=== PATIENT | female | born 1995 | race African-American/Black ===

== ENCOUNTER 2016-09-28 16:25 | Emergency (ER) | payer OTHER, MEDICAID ==
[2016-09-28] MEDS ORDERED: LIDOCAINE 5% (700 MG) TRANSDERMAL ADH..PATCH TP ONE (16:55)
[2016-09-28] MEDS ORDERED: IBUPROFEN 600 MG TABLET PO ONE (16:55)
--- NOTE | 2016-09-28 17:02 | ER Document Report ---
ED Fall - General Chief Complaint: Fall Injury Stated Complaint: FALL AT WORK/BACK PAIN Time Seen by Provider: 09/28/16 16:47 Mode of Arrival: Ambulatory Information source: Patient Notes: 21-year-old female presents to ED for pain to her upper and lower back after she fell today at work at [employer]. She states she has pain in her thoracic area and lower back as well as numbness and tingling in her lower back. She denies head or neck injury or any loss of consciousness. She states she has hurt her back in the past. She states she also had back pain after an epidural. TRAVEL OUTSIDE OF THE [place] IN LAST 30 DAYS: No - HPI Occurred: This afternoon Where: Work Context: Slipped, Fell from standing Associated symptoms: None Location of injury/pain: Back Quality of pain: Sharp, Other - Numbness and tingling to the lower back Severity: Moderate Pain Level: 4 Past Medical History - General Information source: Patient - Social History Smoking Status: Current Every Day Smoker Cigarette use (# per day): Yes - 2 Cigarettes a day Chew tobacco use (# tins/day): No Smoking Education Provided: Yes - Less than 2 minutes Frequency of alcohol use: Social Drug Abuse: None Occupation: [employer] Lives with: Grandparent(s) Family History: Thyroid Disfunction Patient has suicidal ideation: No Patient has homicidal ideation: No - Past Medical History Cardiac Medical History: Reports: None Pulmonary Medical History: Reports: None EENT Medical History: Reports: None Neurological Medical History: Reports: None Endocrine Medical History: Reports: None Renal/ Medical History: Reports: None Malignancy Medical History: Reports: None GI Medical History: Reports: None Musculoskeltal Medical History: Reports Hx Musculoskeletal Trauma Skin Medical History: Reports None Psychiatric Medical History: Reports: None Traumatic Medical History: Reports: None Infectious Medical History: Reports: None Surgical Hx: Negative Past Surgical History: Reports: None - Immunizations Immunizations up to date: Yes Hx Diphtheria, Pertussis, Tetanus Vaccination: Yes Review of Systems - Review of Systems Constitutional: No symptoms reported EENT: No symptoms reported Cardiovascular: No symptoms reported Respiratory: No symptoms reported Gastrointestinal: No symptoms reported Genitourinary: No symptoms reported Female Genitourinary: No symptoms reported Musculoskeletal: Back pain - mid back and low back. denies: Neck pain Skin: No symptoms reported Hematologic/Lymphatic: No symptoms reported Neurological/Psychological: No symptoms reported -: Yes All other systems reviewed and negative Physical Exam - Vital signs Vitals: Temp Pulse Resp BP Pulse Ox 98.4 F 83 16 117/70 100 09/28/16 16:29 09/28/16 16:29 09/28/16 16:29 09/28/16 16:29 09/28/16 16:29 Interpretation: Normal - General General appearance: Appears well, Alert - HEENT Head: Normocephalic, Atraumatic Eyes: Normal Pupils: PERRL - Respiratory Respiratory status: No respiratory distress Chest status: Nontender Breath sounds: Normal Chest palpation: Normal - Cardiovascular Rhythm: Regular Heart sounds: Normal auscultation Murmur: No - Abdominal Inspection: Normal Distension: No distension Bowel sounds: Normal Tenderness: Nontender Organomegaly: No organomegaly - Back Back: Normal, Tender. No: Deformity/step-off Notes: Denies loss of bowel or bladder control, denies loss of muscle control or sensation. No signs of cauda equina. No saddle anesthesia. - Extremities General upper extremity: Normal inspection, Nontender, Normal color, Normal ROM , Normal temperature General lower extremity: Normal inspection, Nontender, Normal color, Normal ROM , Normal temperature, Normal weight bearing. No: Morris's sign - Neurological Neuro grossly intact: Yes Cognition: Normal Orientation: AAOx4 [place] Coma Scale Eye Opening: Spontaneous Sruthi Coma Scale Verbal: Oriented Sruthi Coma Scale Motor: Obeys Commands Sruthi Coma Scale Total: 15 Speech: Normal Cranial nerves: Normal Cerebellar coordination: Normal Motor strength normal: LUE, RUE, LLE, RLE Additional motor exam normals: Equal academic services coordinator Sensory: Normal - Psychological Associated symptoms: Normal affect, Normal mood - Skin Skin Temperature: Warm Skin Moisture: Dry Skin Color: Normal Course - Re-evaluation Re-evalutation: 09/28/16 18:48 Patient was treated with ibuprofen and Lidoderm for her back pain and Macrobid for her UTI. Just as I was typing up her discharge papers she requested to be checked for STDs. GC and Chlamydia and wet mount sample sent to the lab. Patient refused treatment while she is in the emergency room for STDs. She was informed if they come back positive she will need to return to the emergency room for treatment. Patient refused shot of Rocephin and azithromycin while in the emergency room. - Vital Signs Vital signs: Temp Pulse Resp BP Pulse Ox 98.4 F 83 16 117/70 100 09/28/16 16:29 09/28/16 16:29 09/28/16 16:29 09/28/16 16:29 09/28/16 16:29 - Laboratory Laboratory results interpreted by me: 09/28/16 17:00 Urine Protein 30 H Urine Ketones TRACE H Ur Leukocyte Esterase LARGE H Urine Ascorbic Acid 40 H Discharge - Discharge Clinical Impression: Low back pain Qualifiers: Chronicity: acute Back pain laterality: unspecified Sciatica presence: with sciatica Sciatica laterality: sciatica of left side Qualified Code(s): M54.42 - Lumbago with sciatica, left side UTI (urinary tract infection) Qualifiers: Urinary tract infection type: site unspecified Hematuria presence: without hematuria Qualified Code(s): N39.0 - Urinary tract infection, site not specified Condition: Stable Disposition: HOME, SELF-CARE Instructions: Stretching Exercises for the Back ([facility]) Additional Instructions: LOW BACK PAIN: Three out of every four people will have an episode of disabling back pain during their lifetime. Most commonly the pain is due to straining of the muscles and ligaments in the low back. Usual treatment includes: (1) Rest on a firm surface. Avoid lying on your stomach. (2) Ice pack the painful area. After a few days, gentle heat may be used intermittently to relax the area, or ice packs can be continued. (3) Medication may be needed -- muscle relaxers and antiinflammatory medicines are commonly used. (4) As the back improves, exercises are prescribed to strengthen the back and abdominal muscles. Your doctor will advise you on the proper care for your back at each stage in your recovery. You may be better in a few days -- or healing may take several weeks. If new symptoms of a "herniated disc" (radiation of pain, numbness, or tingling down the back of the leg or weakness in the leg) occur, you should be re-examined. Further testing may be necessary. URINARY TRACT INFECTION: Your evaluation indicates that you have a urinary tract infection. This is due to germs growing in the bladder. This is a common problem. This infection usually responds quickly to antibiotics. Your antibiotic should be taken exactly as prescribed. Drink plenty of fluids -- three to four quarts a day. Occasionally, a bladder anesthetic will be prescribed to help stop the feeling of urgency until the antibiotic has a chance to clear the infection. This may cause your urine to be dark orange. Certain urine infections require a culture. If the doctor obtained a culture, the results will be back in two days. You should call to see if a change in treatment is needed. A repeat urinalysis after you finish treatment is often recommended. The physician will let you know if further testing is required. Call the doctor if you develop fever, chills, flank pain, inability to urinate, or blood in the urine. NITROFURANTOIN (MACRODANTIN, MACROBID): You have received a prescription for nitrofurantoin (Macrodantin). This antibiotic is used for urinary tract infections. Women who are or nursing should notify the physician before taking this medicine. If you have ever had a problem caused by this medication in the past, be sure the physician is aware of it. Common side effects of this medicine include nausea, vomiting, or decreased appetite. Notify your physician if these side effects become severe. Immediately stop this medicine and call the physician if you develop cough , shortness of breath, chest pain, weakness, jaundice (yellow color of the skin and whites of the eyes), or a skin rash. Anti-Inflammatory Medication You have received a prescription for an antiinflammatory agent. This is an excellent, safe drug for pain control. In addition, it has potent antiinflammatory effects which are beneficial, especially in the treatment of injuries, arthritis, or tendonitis. It's best to take this medicine with food. Persons with ulcer disease or allergy to aspirin should notify their physician of this before taking this drug. Take the medication exactly as prescribed. Don't take additional doses unless instructed to do so by your doctor. If you develop wheezing, shortness of breath, hives, faintness, stomach pain, vomiting, or dark black stools, return for re-evaluation at once. MUSCLE RELAXERS: Muscle relaxing medications are usually prescribed for acute muscle spasm or injury to the neck and back. They are often combined with antiinflammatory pain medication for increased relief. You may stop the muscle relaxer when the pain and stiffness have improved. Start the medication again if spasms recur. Muscle relaxers may cause drowsiness, especially with the first dose. Do not operate machinery or drive while under the effects of the medication. Most muscle relaxers last up to 24 hours. Do not combine the medication with alcohol. ICE PACKS: Apply ice packs frequently against the painful area. Many different schedules are recommended, such as "20 minutes on, 20 minutes off" or "one hour ice, two hours rest." If you need to work, you may need to go longer between ice treatments. You should plan to have the area ice packed AT LEAST one fourth of the time. The ice should be applied over the wrap, tape, or splint, or over a layer of cloth -- not directly against the skin. Some ice bags have a built-in cloth and can be put directly on the skin. WARM PACKS: After approximately two days, apply gentle heat (such as a heating pad or hot water bottle) for about 20 to 30 minutes about every two hours -- at least four times daily. Warmth and elevation will help you make a more rapid recovery , and will ease the pain considerably. Do not use HOT heat, and never apply heat for longer than 30 minutes. The continuous heat can invisibly damage skin and muscles -- even when no burn is seen on the surface. Damaged muscles can make you MORE sore. Lidoderm patch was applied to the area of pain. If this patch help I have written you a prescription for the Lidoderm patches. If your insurance will not cover a Lidoderm patch you can use Aspercreme or salon pause which are similar to the Lidoderm patch. These are [id number] and can be bought at any drugstore. You requested STD checking just before you were ready to leave. These test take between 2 and 3 hours to run please call back about 21:30 (9:30 [facility]) for your results the number to call is [phone]. Test are positive you will need to be treated which is an injection and pill therefore you will need to return to the ED. FOLLOW-UP CARE: If you have been referred to a physician for follow-up care, call the physician s office for an appointment as you were instructed or within the next two days. If you experience worsening or a significant change in your symptoms, notify the physician immediately or return to the Emergency Department at any time for re-evaluation. Prescriptions: Cyclobenzaprine HCl [Flexeril 5 mg Tablet] 5 mg PO TID #15 tablet Lidocaine [Lidoderm 5% (700 mg) Transdermal Patch] 1 patch TP DAILY #14 adh..patch Nitrofurantoin Monohyd/M-Cryst [Macrobid 100 mg Capsule] 100 mg PO BID #14 capsule
[2016-09-28 17:39] LABS: APPEARANCE,URINE CLOUDY; BILIRUBIN,URINE NEGATIVE (NEGATIVE); GLUCOSE, URINE NEGATIVE (NEGATIVE); KETONES,URINE TRACE mg/dL (NEGATIVE); LEUKOCYTE ESTERASE,URINE LARGE (NEGATIVE); NITRITE,URINE NEGATIVE (NEGATIVE); PROTEIN,URINE 30 mg/dL (NEGATIVE); URINE SPECIFIC GRAVITY 1.034; UROBILINOGEN,URINE NEGATIVE mg/dL (<2.0)
[2016-09-28] MEDS ORDERED: NITROFURANTOIN MONOHYD/M-CRYST 100 MG CAPSULE PO ONE (17:52)
--- NOTE | 2016-09-28 18:10 | RADIOLOGY REPORT (SQ) ---
EXAM DESCRIPTION: L SPINE WHOLE COMPLETED DATE/TIME: 09/28/2016 5:43 pm REASON FOR STUDY: fell at 1515 with back pain COMPARISON: None. NUMBER OF VIEWS: Five views including obliques. TECHNIQUE: AP, lateral, oblique, and sacral radiographic images acquired of the lumbar spine. LIMITATIONS: None. FINDINGS: MINERALIZATION: Normal. SEGMENTATION: Normal. No transitional anatomy. ALIGNMENT: Normal. VERTEBRAE: Maintained height. No fracture or worrisome bone lesion. DISCS: Preserved height. No significant osteophytes or end plate irregularity. POSTERIOR ELEMENTS: Pedicles and facets are intact. No pars defect or posterior arch defects. HARDWARE: None in the spine. PARASPINAL SOFT TISSUES: Normal. PELVIS: Intact as visualized. No fractures or worrisome bone lesions. SI joints intact. OTHER: No other significant finding. IMPRESSION: NORMAL 5 VIEW LUMBAR SPINE. TECHNICAL DOCUMENTATION: JOB ID: [id number]- All Rights Reserved
--- NOTE | 2016-09-28 18:11 | RADIOLOGY REPORT (SQ) ---
EXAM DESCRIPTION: T SPINE AP/LAT COMPLETED DATE/TIME: 09/28/2016 5:43 pm REASON FOR STUDY: fell at 1515 with back pain COMPARISON: None. NUMBER OF VIEWS: Two views. TECHNIQUE: AP and lateral radiographic images acquired of the thoracic spine. LIMITATIONS: None. FINDINGS: MINERALIZATION: Normal. ALIGNMENT: Slight levoconvex lateral curvature may be positional/due to discomfort. VERTEBRAE: No fracture or bone lesion. Maintained height, normal segmentation. DISCS: No significant loss of height or significant narrowing. No large osteophytes. HARDWARE: None in the spine. MEDIASTINUM AND SOFT TISSUES: Normal heart size and aortic contour. No soft tissue abnormality. VISUALIZED LUNG GRANADOS: Clear. OTHER: No other significant finding. IMPRESSION: NO SIGNIFICANT RADIOGRAPHIC FINDING IN THE THORACIC SPINE. TECHNICAL DOCUMENTATION: JOB ID: [id number] [employer]- All Rights Reserved
[2016-09-28 19:02] VITALS: BP 110/72
[2016-09-28 20:31] LABS: CHLAM PCR NOT DETECTED (NOT DETECT)
== END 2016-09-28 18:48 | disposition home or self-care (01) ==
LOC: ER 16:25
DX: N39.0 Urinary tract infection, site not specified (principal); M54.42 Lumbago with sciatica, left side; M54.9 Dorsalgia, unspecified; M54.6 Pain in thoracic spine; M54.5 Low back pain; R20.0 Anesthesia of skin; W19.XXXA Unspecified fall, initial encounter; Y99.0 Civilian activity done for income or pay; F17.210 Nicotine dependence, cigarettes, uncomplicated
CPT/HCPCS: 99283; 87086; 87210; 81025; 81001; 87491; 87591; 72110; 72070; J8499

== ENCOUNTER 2016-10-02 15:26 | Emergency (ER) | payer OTHER, MEDICAID ==
[2016-10-02 16:29] VITALS: BP 106/75
--- NOTE | 2016-10-02 16:29 | ER Document Report ---
ED Neck/Back Problem - General Chief Complaint: Back Pain Stated Complaint: BACK PAIN Time Seen by Provider: 10/02/16 15:51 Mode of Arrival: Ambulatory Notes: 21-year-old female to ED for continued pain and her back from a fall 4 days ago at work. Today she states the pain is in her left side of her back instead of in her spine area. She states that the ibuprofen Flexeril and by the M[place]za patches are not helping. She states she has not taken the ibuprofen she has been using the Lidoderm patches for 2-3 hours and then moving them and she has been taken 3 or 4 of the Flexeril at a time. Mother states she has not been moving around, patient has states she refused to use the ice as it does not help. TRAVEL OUTSIDE OF THE [place] IN LAST 30 DAYS: No - HPI Onset: Other - 4 Days ago Where: Work Onset: Gradual Timing: Still present - The left side of her back instead of the spinal area Quality of pain: Sharp Severity: Moderate Pain Level: 4 Context: Other - All the time Recent injury: Yes Associated symptoms: Lower back pain Exacerbated by: Movement of trunk, Sitting position Relieved by: Nothing Similar symptoms previously: Yes Recently seen / treated by doctor: Yes - Related Data Allergies/Adverse Reactions: No Known Allergies Allergy (Unverified 10/02/16 15:31) Past Medical History - General Information source: Patient - Social History Smoking Status: Current Every Day Smoker Cigarette use (# per day): Yes Smoking Education Provided: Yes - less than 2 min Frequency of alcohol use: Social Drug Abuse: None Occupation: [employer] Lives with: Grandparent(s) Family History: Thyroid Disfunction Patient has suicidal ideation: No Patient has homicidal ideation: No - Past Medical History Cardiac Medical History: Reports: None Pulmonary Medical History: Reports: None EENT Medical History: Reports: None Neurological Medical History: Reports: None Endocrine Medical History: Reports: None Renal/ Medical History: Reports: None Malignancy Medical History: Reports: None GI Medical History: Reports: None Musculoskeltal Medical History: Reports Hx Musculoskeletal Trauma Skin Medical History: Reports None Psychiatric Medical History: Reports: None Traumatic Medical History: Reports: None Infectious Medical History: Reports: None Surgical Hx: Negative Past Surgical History: Reports: None - Immunizations Immunizations up to date: Yes Hx Diphtheria, Pertussis, Tetanus Vaccination: Yes Review of Systems - Review of Systems Constitutional: No symptoms reported EENT: No symptoms reported Cardiovascular: No symptoms reported Respiratory: No symptoms reported Gastrointestinal: No symptoms reported Genitourinary: No symptoms reported Female Genitourinary: No symptoms reported Musculoskeletal: Back pain Skin: No symptoms reported Hematologic/Lymphatic: No symptoms reported Neurological/Psychological: No symptoms reported -: Yes All other systems reviewed and negative Physical Exam - Vital signs Vitals: Temp Pulse Resp BP Pulse Ox 98.0 F 84 16 106/75 100 10/02/16 15:31 10/02/16 15:31 10/02/16 15:31 10/02/16 15:31 10/02/16 15:31 Interpretation: Normal - General General appearance: Appears well, Alert - HEENT Head: Normocephalic, Atraumatic Eyes: Normal Pupils: PERRL - Respiratory Respiratory status: No respiratory distress Chest status: Nontender Breath sounds: Normal Chest palpation: Normal - Cardiovascular Rhythm: Regular Heart sounds: Normal auscultation Murmur: No - Abdominal Inspection: Normal Distension: No distension Bowel sounds: Normal Tenderness: Nontender Organomegaly: No organomegaly - Back Back: Normal, Tender - left side of back, patient very uncooperative during assessment. would not sit up straight and was moving around and making rude comments and jestures throughout the assessment.. No: Deformity/step-off, CVA tenderness, Vertebra tenderness, Scars, Scoliosis, Wounds - Extremities General upper extremity: Normal inspection, Nontender, Normal color, Normal ROM , Normal temperature General lower extremity: Normal inspection, Nontender, Normal color, Normal ROM , Normal temperature, Normal weight bearing. No: Morris's sign - Neurological Neuro grossly intact: Yes Cognition: Normal Orientation: AAOx4 Sruthi Coma Scale Eye Opening: Spontaneous [place] Coma Scale Verbal: Oriented Sruthi Coma Scale Motor: Obeys Commands Sruthi Coma Scale Total: 15 Speech: Normal Motor strength normal: LUE, RUE, LLE, RLE Sensory: Normal - Psychological Associated symptoms: Normal affect, Normal mood - Skin Skin Temperature: Warm Skin Moisture: Dry Skin Color: Normal Course - Re-evaluation Re-evalutation: 10/02/16 22:13 Patient was very rude throughout her whole visit. She was uncooperative in her assessment. She states that she did not use the ibuprofen or the ice because she knew they would not work. She states she cannot keep coming back to the emergency room because we will not treat her pain. She states she is not able to take care of her child and her grandmother has to take care of her child for her. Patient is able to move all around in the bed and while sitting up during assessment. She states the pain is no longer in her spinal area but now moved to the left mid to lower back. Patient was repeatedly turning the TV on while we were trying to talk and turning up the volume. The nurse muted the volume and patient would turn it back on. She then started calling for another nurse. After patient was given discharge instruction, she got up and walked out before getting her written discharge papers or her prescription for naproxen. We followed the patient out and her relatives signed the paper and took the discharge papers and prescription with her. - Vital Signs Vital signs: Temp Pulse Resp BP Pulse Ox 98.0 F 84 16 106/75 100 10/02/16 15:31 10/02/16 15:31 10/02/16 15:31 10/02/16 15:31 10/02/16 15:31 Discharge - Discharge Clinical Impression: Upper back pain on left side Low back pain Qualifiers: Chronicity: unspecified Back pain laterality: left Sciatica presence: without sciatica Qualified Code(s): M54.5 - Low back pain Condition: Stable Disposition: HOME, SELF-CARE Instructions: Family Physicians / Practices Additional Instructions: LOW BACK PAIN: Three out of every four people will have an episode of disabling back pain during their lifetime. Most commonly the pain is due to straining of the muscles and ligaments in the low back. Usual treatment includes: (1) Rest on a firm surface. Avoid lying on your stomach. (2) Ice pack the painful area. After a few days, gentle heat may be used intermittently to relax the area, or ice packs can be continued. (3) Medication may be needed -- muscle relaxers and antiinflammatory medicines are commonly used. (4) As the back improves, exercises are prescribed to strengthen the back and abdominal muscles. Your doctor will advise you on the proper care for your back at each stage in your recovery. You may be better in a few days -- or healing may take several weeks. If new symptoms of a "herniated disc" (radiation of pain, numbness, or tingling down the back of the leg or weakness in the leg) occur, you should be re-examined. Further testing may be necessary. Anti-Inflammatory Medication You have received a prescription for an antiinflammatory agent. This is an excellent, safe drug for pain control. In addition, it has potent antiinflammatory effects which are beneficial, especially in the treatment of injuries, arthritis, or tendonitis. It's best to take this medicine with food. Persons with ulcer disease or allergy to aspirin should notify their physician of this before taking this drug. Take the medication exactly as prescribed. Don't take additional doses unless instructed to do so by your doctor. If you develop wheezing, shortness of breath, hives, faintness, stomach pain, vomiting, or dark black stools, return for re-evaluation at once. MUSCLE RELAXERS: The muscle relaxers as prescribed 1 at a time. Muscle relaxing medications are usually prescribed for acute muscle spasm or injury to the neck and back. They are often combined with antiinflammatory pain medication for increased relief. You may stop the muscle relaxer when the pain and stiffness have improved. Start the medication again if spasms recur. Muscle relaxers may cause drowsiness, especially with the first dose. Do not operate machinery or drive while under the effects of the medication. Most muscle relaxers last up to 24 hours. Do not combine the medication with alcohol. ICE PACKS: Apply ice packs frequently against the painful area. Many different schedules are recommended, such as "20 minutes on, 20 minutes off" or "one hour ice, two hours rest." If you need to work, you may need to go longer between ice treatments. You should plan to have the area ice packed AT LEAST one fourth of the time. The ice should be applied over the wrap, tape, or splint, or over a layer of cloth -- not directly against the skin. Some ice bags have a built-in cloth and can be put directly on the skin. WARM PACKS: After approximately two days, apply gentle heat (such as a heating pad or hot water bottle) for about 20 to 30 minutes about every two hours -- at least four times daily. Warmth and elevation will help you make a more rapid recovery , and will ease the pain considerably. Do not use HOT heat, and never apply heat for longer than 30 minutes. The continuous heat can invisibly damage skin and muscles -- even when no burn is seen on the surface. Damaged muscles can make you MORE sore. FOLLOW-UP CARE: If you have been referred to a physician for follow-up care, call the physician s office for an appointment as you were instructed or within the next two days. If you experience worsening or a significant change in your symptoms, notify the physician immediately or return to the Emergency Department at any time for re-evaluation. Prescriptions: Naproxen [Naprosyn 375 mg Tablet] 375 mg PO BID #10 tablet Forms: Return to Work
== END 2016-10-02 16:27 | disposition home or self-care (01) ==
LOC: ER 15:26
DX: M54.5 Low back pain (principal); M54.89 Other dorsalgia; W19.XXXA Unspecified fall, initial encounter; Y99.0 Civilian activity done for income or pay; F17.210 Nicotine dependence, cigarettes, uncomplicated; Z71.6 Tobacco abuse counseling
CPT/HCPCS: 99283

== ENCOUNTER 2016-11-16 15:13 | Emergency (ER) | payer MEDICAID, OTHER ==
[2016-11-16 15:17] VITALS: BP 115/65
[2016-11-16] MEDS ORDERED: OXYCODONE-ACETAMINOPHEN 5-325 MG TABLET PO ONE (15:45)
[2016-11-16] MEDS ORDERED: IBUPROFEN 800 MG TABLET PO ONE (15:45)
--- NOTE | 2016-11-16 15:47 | ER Document Report ---
HPI - HPI Patient complains to provider of: toothache Onset: Yesterday Onset/Duration: Gradual Quality of pain: Achy Pain Level: 5 Context: Patient presents complaining of dental pain to her right lower jaw. Patient states that she has a cavity in the filling has fallen out of the tooth. Patient denies any fever or facial swelling. Patient states she does plan to follow-up with the dentist this week. Associated Symptoms: Other - Dental pain. denies: Fever Exacerbated by: Denies Relieved by: Denies Similar symptoms previously: Yes Recently seen / treated by doctor: No - ROS ROS below otherwise negative: Yes Systems Reviewed and Negative: Yes All other systems reviewed and negative - CONSTITUTIONAL Constitutional: DENIES: Fever, Chills - EENT Notes: Dental pain - GASTROINTESTINAL Gastrointestinal: DENIES: Nausea, Patient vomiting - DERM Skin Color: Normal Skin Problems: None Past Medical History - General Information source: Patient - Social History Smoking Status: Current Every Day Smoker Frequency of alcohol use: None Drug Abuse: None Occupation: None Family History: Reviewed & Not Pertinent, Thyroid Disfunction - Medical History Medical History: Negative Renal/ Medical History: Denies: Hx Peritoneal Dialysis Musculoskeltal Medical History: Reports Hx Musculoskeletal Trauma Surgical Hx: Negative - Immunizations Immunizations up to date: Yes Hx Diphtheria, Pertussis, Tetanus Vaccination: Yes Vertical Provider Document - CONSTITUTIONAL Agree With Documented VS: Yes Exam Limitations: No Limitations General Appearance: WD/WN, No Apparent Distress - INFECTION CONTROL TRAVEL OUTSIDE OF THE [place] IN LAST 30 DAYS: No - HEENT HEENT: Atraumatic, Normal ENT Exam, Normocephalic Mouth Diagram: 1 - tender, dental decay/fracture, mild gingival inflammation, no trismus - NECK Neck: Normal Inspection, Supple. negative: Lymphadenopathy-Left, Lymphadenopathy-Right - RESPIRATORY Respiratory: Breath Sounds Normal, No Respiratory Distress O2 Sat by Pulse Oximetry: 100 - CARDIOVASCULAR Cardiovascular: Regular Rate, Regular Rhythm - BACK Back: Normal Inspection - MUSCULOSKELETAL/EXTREMETIES Musculoskeletal/Extremeties: MAEW - NEURO Level of Consciousness: Awake, Alert, Appropriate - DERM Integumentary: Warm, Dry, No Rash Course - Vital Signs Vital signs: Temp Pulse Resp BP Pulse Ox 98.5 F 68 16 115/65 100 11/16/16 15:16 11/16/16 15:16 11/16/16 15:16 11/16/16 15:16 11/16/16 15:16 Discharge - Discharge Clinical Impression: Toothache Condition: Stable Disposition: HOME, SELF-CARE Instructions: Oral Narcotic Medication ([facility]), Penicillin V K ([facility]), Toothache ( [facility]) Additional Instructions: Return immediately for any new or worsening symptoms Followup with your primary care provider, call tomorrow to make a followup appointment Follow-up with the dental care provider as planned Prescriptions: Acetaminophen with Codeine [Acetaminophen-Cod #3 Tablet] 1 each PO Q6 PRN #10 tablet PRN Reason: Naproxen [Naprosyn 250 Nmg Tablet] 1 tab PO BID #14 tablet Penicillin V Potassium [Penicillin Vk 500 mg Tablet] 500 mg PO BID #20 tablet Referrals: [facility] [Provider Group] - Follow up as needed
== END 2016-11-16 15:58 | disposition home or self-care (01) ==
LOC: ER 15:13
DX: K08.89 Other specified disorders of teeth and supporting structures (principal); R68.84 Jaw pain; F17.200 Nicotine dependence, unspecified, uncomplicated
CPT/HCPCS: 99282

== ENCOUNTER 2016-11-30 20:26 | Emergency (ER) | payer SELFPAY ==
[2016-11-30] MEDS ORDERED: HYDROCODONE/ACETAMINOPHEN 5-325 MG 6 TAB/DSPK PO PRN (22:56)
--- NOTE | 2016-11-30 22:58 | ER Document Report ---
HPI - HPI Patient complains to provider of: dental pain Pain Level: 4 Context: Patient is a 21-year-old female comes emergency department for chief complaint of dental pain. She states she has a known broken tooth in the right lower jaw , she states that it has started to hurt on a regular basis again, she was seen about 2 weeks ago and took a few days of penicillin and a pain medication but states that she stopped at that point. She denies swelling of the face, difficulty swallowing, neck pain, fever. - REPRODUCTIVE LMP: "last month" - DERM Skin Color: Normal Past Medical History - General Information source: Patient - Social History Smoking Status: Never Smoker Frequency of alcohol use: None Lives with: Family Family History: Reviewed & Not Pertinent, Thyroid Disfunction Renal/ Medical History: Denies: Hx Peritoneal Dialysis Musculoskeltal Medical History: Reports Hx Musculoskeletal Trauma Surgical Hx: Negative - Immunizations Immunizations up to date: Yes Hx Diphtheria, Pertussis, Tetanus Vaccination: Yes Vertical Provider Document - CONSTITUTIONAL General Appearance: WD/WN, No Apparent Distress - INFECTION CONTROL TRAVEL OUTSIDE OF THE [place] IN LAST 30 DAYS: No - HEENT HEENT: Atraumatic, Normocephalic. negative: Pharyngeal Exudate, Pharyngeal Tenderness Mouth Diagram: 1 - Dental caries, mild surrounding erythema of the gumline, no significant swelling, no abscess, normal oropharyngeal exam otherwise - NECK Neck: Normal Inspection - RESPIRATORY Respiratory: Breath Sounds Normal, No Respiratory Distress - CARDIOVASCULAR Cardiovascular: Regular Rate, Regular Rhythm - GI/ABDOMEN Gastrointestinal: Abdomen Soft, Abdomen Non-Tender - MUSCULOSKELETAL/EXTREMETIES Musculoskeletal/Extremeties: MAEW, FROM, Non-Tender - NEURO Level of Consciousness: Awake, Alert, Appropriate - DERM Integumentary: Warm, Dry, No Rash Course - Re-evaluation Re-evalutation: Patient was confused about completing duration for antibiotics. She is unsure if she has 10 day supply at home. Provided her with a new prescription for this. Patient has a dental appointment on the 16 of this month. Discussed return precautions. Patient states understanding and agreement. Discharge - Discharge Clinical Impression: Pain, dental Condition: Stable Disposition: HOME, SELF-CARE Additional Instructions: Please take the penicillin antibiotic as prescribed twice a day for the next 10 days. Follow-up with your dental appointment as planned. Return to the emergency department if you develop any concerning or worsening symptoms including swelling of the face, difficulty swallowing, or any other concerning symptoms. Prescriptions: Penicillin V Potassium [Penicillin Vk 500 mg Tablet] 500 mg PO BID #20 tablet Referrals: EDWARD SMITH MD [Primary Care Provider] - Follow up as needed
== END 2016-11-30 23:12 | disposition home or self-care (01) ==
LOC: ER 20:26
DX: K08.89 Other specified disorders of teeth and supporting structures (principal); R68.84 Jaw pain
CPT/HCPCS: 99282

== ENCOUNTER 2017-03-30 14:42 | Emergency (ER) | payer SELFPAY ==
[2017-03-30] MEDS ORDERED: LIDOCAINE 2% VISCOUS SOLN 20 ML UDCUP PO ONE (16:05)
--- NOTE | 2017-03-30 16:12 | ER Document Report ---
HPI - HPI Pain Level: 4 Notes: Patient is a 22-year-old female who presents to the ED complaining of dental pain to #31 and #181 day. Patient states that she was eating cereal when she began noticing pain in our one tooth feels a little bit loose. Patient states that she does know she has poor dentition, but has not been in to see a dentist. Patient has not noticed any obvious abscess or discharge. She still eating and drinking otherwise without any difficulties. She is urinating normally and having normal bowel movements. Patient denies any smoking or IV drug use. She has not noticed any facial swelling or hoarseness. Denies any headache, fever, head injury, neck pain, URI, sore throat, chest pain, palpitations, syncope, cough, shortness of breath, wheeze, dyspnea, abdominal pain, nausea/vomiting/diarrhea, urinary retention, dysuria, hematuria, or rash. - ROS Systems Reviewed and Negative: Yes All other systems reviewed and negative Past Medical History - Social History Smoking Status: Never Smoker Family History: Reviewed & Not Pertinent, Thyroid Disfunction Renal/ Medical History: Denies: Hx Peritoneal Dialysis Musculoskeltal Medical History: Reports Hx Musculoskeletal Trauma - Immunizations Immunizations up to date: Yes Hx Diphtheria, Pertussis, Tetanus Vaccination: Yes Vertical Provider Document - CONSTITUTIONAL Agree With Documented VS: Yes Notes: PHYSICAL EXAMINATION: GENERAL: Well-appearing, well-nourished and in no acute distress. HEAD: Atraumatic, normocephalic. EYES: Pupils equal round and reactive to light, extraocular movements intact, sclera anicteric, conjunctiva are normal. ENT: EAC clear b/l. TM's intact b/l without erythema, fluid, or perforation. Nares patent and without discharge. oropharynx clear without exudates. No tonsilar hypertrophy or erythema. Moist mucous membranes. No sinus tenderness. Uvula midline. No palatine shift. No tongue protrusion. No respiratory compromise. Mouth: Poor dentition. + moderate/severe decay and mild gingivitis. No obvious abscess or discharge noted. No facial swelling. + tenderness to tooth #31, 18. NECK: Normal range of motion, supple without lymphadenopathy. No rigidity/ meningismus. LUNGS: Breath sounds clear to auscultation bilaterally and equal. No wheezes rales or rhonchi. HEART: Regular rate and rhythm without murmurs, rubs, gallops. NEUROLOGICAL: Cranial nerves grossly intact. Normal speech, normal gait. Normal sensory, motor exams PSYCH: Normal mood, normal affect. SKIN: Warm, Dry, normal turgor, no rashes or lesions noted. - INFECTION CONTROL TRAVEL OUTSIDE OF THE [place] IN LAST 30 DAYS: No - RESPIRATORY O2 Sat by Pulse Oximetry: 100 Course - Re-evaluation Re-evalutation: 03/30/17 16:22 Patient is an afebrile, well-hydrated, 22-year-old female who presents ED with dental pain and #31 and #18. Vitals are stable. PE is otherwise unremarkable. No incision and drainage is warranted at this time based on H&P. No other labs or imaging warranted at this time patient should be as well. I will send her home with a dispensed viscous lidocaine as well as penicillin. Low suspicion for any meningitis, sepsis, peritonsillar/pharyngeal abscess, respiratory compromise, Sg's, temporal arteritis, or other emergent systemic condition at this time. Patient is aware this condition can change from initial presentation and she needs to monitor symptoms closely. Conservative measures otherwise for symptoms. Call to schedule an appointment with a dentist for further evaluation and management. Recheck with your PCM this week as well. Return to the ED with any worsening/concerning symptoms otherwise as reviewed in discharge. Patient is in agreement. - Vital Signs Vital signs: Temp Pulse Resp BP Pulse Ox 99.3 F 75 14 117/68 100 03/30/17 15:07 03/30/17 15:07 03/30/17 15:07 03/30/17 15:07 03/30/17 15:07 Discharge - Discharge Clinical Impression: Toothache Condition: Stable Disposition: HOME, SELF-CARE Instructions: [facility], Penicillin V K ([facility]), Toothache ([facility]) Additional Instructions: [place] and floss twice daily Maintain fluid intake Take antibiotics as directed Mouthwash, salt water gargles, peroxide rinse as needed Tylenol/ibuprofen as needed Recheck with PCM this week Call today/tomorrow and schedule an appointment with your dentist for further evaluation Return to the ED with any worsening symptoms and/or development of fever, headache, facial swelling, swelling of lips/tongue/throat, trouble swallowing, drooling, hoarseness, neck pain/stiffness, chest pain, palpitations, syncope, shortness of breath, trouble breathing, abdominal pain, n/v/d, numbness/tingling , or other worsening symptoms that are concerning to you. Prescriptions: Penicillin V Potassium [Penicillin Vk 250 mg Tablet] 500 mg PO BID #40 tablet Referrals: [facility] [Provider Group] - Follow up in 1 week
[2017-03-30 16:44] VITALS: BP 109/60
== END 2017-03-30 16:44 | disposition home or self-care (01) ==
LOC: ER 14:42
DX: K08.89 Other specified disorders of teeth and supporting structures (principal)
CPT/HCPCS: 99282; J3490